=== PATIENT | male | born 1990 | race Caucasian/White ===

== ENCOUNTER 2025-01-09 06:50 | Emergency (ER) | payer MEDICAID, SELFPAY ==
--- OUTSIDE RECORDS SUMMARY | 2023-07-26 09:00 | XMS_ITS ---
Author Organization [facility] Servic es Address [address] [place] [address] Care Team Providers Care Barrel Lathe Operator Outside Name Role Phone Doreen Goodrich Primary Care Provider [phone] Ching Greco [facility] [phone] REASON FOR VISIT PROPHY Encounters Encounter Location Date Provider Diagnosis [place] [address] [place] [address] 07/26/2023 Ching Greco Plan Of Treatment Next Appt Details Provider Name:Isabell Ivy, 02:00:00 PM, [address] [place], [address], Provider Name:Juliette Meek, 04/05/2025 01:30:00 PM, [address] [place], [address], Progress Notes * SERGIO OROZCO EDOB:1990 (34 yo M)Acc No.[id number]:07/26/2023 Patient:?SERGIO OROZCO :Fabian NyDOB:1990???Age:33 Y???Sex:Male Date:4Phone:[phone]:[facility]Pcp:Doreen Shelton Subjective: * Chief Complaints: * P ROPHY * Electronic signature of Ching Greco on 01/09/2025 at 07:23 AM EDTSign off status: Pending * Provider: Jed Ny Date: 0 07/26/2023 Generated for Printing/Faxing/eTransmitting on:?01/09/2025 07:23 AM EDT
--- OUTSIDE RECORDS SUMMARY | 2023-07-27 11:15 | XMS_ITS ---
Author Organization [employer] [facility] Servic es Address [address] [place] [address] Care Team Providers Care Auto Care Center Manager Name Role Phone Doreen Goodrich Primary Care Provider Ching Greco [facility] [phone] REASON FOR VISIT 6 MONTH PROPHY Medications Medication SIG (Take, Route, Frequency, Duration) Notes Start Date End Date Status Suboxone Active Encounters Encounter Location Date Provider Diagnosis [address] [place] [address] 07/27/2023 Ching Greco Plan Of Treatment Next Appt Details Provider Name:Isabell Ivy, 02:00:00 PM, [address] [place], [address], Provider Name:Juliette Meek, 04/05/2025 01:30:00 PM, [address] [place], [address], Progress Notes * SERGIO OROZCO EDOB:1990 (34 yo M)Acc No.[id number]:07/27/2023 Patient:?SERGIO OROZCO :?Ching NyDOB:1990???Age:33 Y???Sex:Male Date:4Phone:[phone]:[facility], [place]Zmg:Doreen Shelton Subjective: * Chief Complaints: * 6 MONTH PROPHY * Medications: T akingSuboxone Taking Suboxone * Electronic signature of Ching Greco on 01/09/2025 at 07:23 AM EDTSign off status: Pending * Provider: Jed Ny Date: 0 07/27/2023 Generated for Printing/Faxing/eTransmitting on:?01/09/2025 07:23 AM EDT
--- OUTSIDE RECORDS SUMMARY | 2023-08-12 04:30 | XMS_ITS ---
Author Organization [facility] Servic es Address [address] [place] [address] Care Team Providers Care Production Checker Name Role Phone Pasha Goodrich Primary Care Provider REASON FOR VISIT EXTREME PAIN SWOLLEN FACE Encounters Encounter Location Date Provider Diagnosis [place] [address] [place] [address] 08/12/2023 Pasha Orr Plan Of Treatment Next Appt Details Provider Name:Isabell Ivy, 02:00:00 PM, [address], [place], [address], Provider Name:Juliette Meek, 04/05/2025 01:30:00 PM, [address] [place], [address], Progress Notes * SERGIO OROZCO EDOB:1990 (34 yo M)Acc No.[id number]:08/12/2023 Patient:?SERGIO OROZCO :?PASHA ORR DDSDOB:1990???Age: 33 Y???Sex:MaleDate:4Phone:[phone]:[address] Subjective: * Chief Complaints: * E XTREME PAIN SWOLLEN FACE * Electronic signature of Pasha Orr DDS on 01/09/2025 at 07:23 AM EDTSign off status: Pending * Provider: Marcelino ORR DDS Date: 0 08/12/2023 Generated for Printing/Faxing/eTransmitting on:?01/09/2025 07:23 AM EDT
--- OUTSIDE RECORDS SUMMARY | 2024-07-10 04:30 | XMS_ITS ---
Author Organization [facility] Servic es Address [address] [place] [address] Care Team Providers Care President And Chief Executive Officer Name Role Phone Doreen Goodrich Primary Care Provider [phone] Shreya Alamo [facility] [phone] REASON FOR VISIT EXT Encounters Encounter Location Date Provider Diagnosis [facility] [address] [place] [address] 07/10/2024 Shreya Alamo Plan Of Treatment Next Appt Details Provider Name:Isabell Ivy, 02:00:00 PM, [address], [place], [address], Provider Name:Juliette Meek, 04/05/2025 01:30:00 PM, [address], [place], [address], Progress Notes * SERGIO OROZCO EDOB:1990 (34 yo M)Acc No.[id number]:07/10/2024 Patient:?SERGIO OROZCO :?Shreya AlamoDOB:1990???Age:33 Y???Sex:Male Date:07/10/2024Phone:[phone]:[facility]Pcp:Doreen Shelton Subjective: * Chief Complaints: * E XT * Electronic signature of Shreya Alamo , DMD on 01/09/2025 at 07:23 AM EDTSign off status: Pending * Provider: Lidya Alamo Date: 0 07/10/2024 Generated for Printing/Faxing/eTransmitting on:?01/09/2025 07:23 AM EDT
[2025-01-09 06:58] VITALS: BP 145/106; PULSE 108; TEMP 36.7; O2SAT 100; BMI 28.1
--- OUTSIDE RECORDS SUMMARY | 2025-01-09 07:24 | XMS_ITS | Patient Health Record ---
Author Organization [facility] Servic es Address [address] [place] [address] Care Team Providers Care Basket Grader Name Role Phone Doreen Goodrich Primary Care Provider Dr. Eugenio Knott Unavailable [phone] Shreya Alamo Unavailable [phone] Isabell Ivy Unavailable [phone] Reason For Referral No Information Medications Medication SIG (Take, Route, Frequency, Duration) Notes Start Date End Date Status Ibuprofen 800 MG Tablet 1 tablet with fo od or milk as needed Orally Three times a day 08/11/2023UnknownSuboxoneUnknown Encounters Encounter Location Date Provider Diagnosis [facility] [address] [place] [address] 10/09/2024 Doreen Shelton [facility] [place] [address]/27/2025 Isabell YiDental caries on pit and fissure surface penetrating into dentin K02.52 ; Encounter for dental examination and cleaning with abnormal findings Z01.21 and Other dental procedure status Z98.818[facility] [address] [place] [address]/08/2024Joseph RizkCracked tooth K03.81[facility] [place] [address]Esther YiDental caries on pit and fissure surface penetrating into dentin K02.52[address] [place] [address]/Fitana SheltonEncounter for dental examination and cleaning with abnormal findings Z01.21 ; Disturbances in tooth eruption K00.6 ; Other dental procedure status Z98.818 ; Necrosis of pulp K04.1 and Cracked tooth K03.81 Assessments Encounter Date Diagnosis (ICD Code) Assessment Notes Treatment Notes Treatment Clinical Notes Section Notes 10/25/2024 Cracked tooth (ICD-10 - K03.81) 11/01/2024Dental caries on pit and fissure surface penetrating into dentin (ICD- 10 - K02.52)11/15/2024Dental caries on pit and fissure surface penetrating into dentin (ICD-10 - K02.52)07/05/2024Encounter for dental examination and cleaning with abnormal findings (ICD-10 - Z01.21)11/15/2024Encounter for dental examination and cleaning with abnormal findings (ICD-10 - Z01.21)07/05/2024 Disturbances in tooth eruption (ICD-10 - K00.6)11/15/2024Other dental procedure status (ICD-10 - Z98.818)07/05/2024Other dental procedure status (ICD-10 - Z98.818)07/05/2024Necrosis of pulp (ICD-10 - K04.1)07/05/2024racked tooth (ICD- 10 - K03.81) Plan Of Treatment Next Appt Details Provider Name:Isabell Cata, 02:00:00 PM, [address], [place], [address], Provider Name:Juliette Meek, 04/05/2025 01:30:00 PM, [address], [place], [address], Insurance Providers Payer Name Payer Address Payer Phone Subscriber Number Group Number Insured Name Patient Relationship to Insured Coverage Start Date Coverage End Date Dental [employer] DQ [address] [place] [address] [phone] [id number] - patient is the lzpiyhl3307/05/2024Dental Wrap CFC HumanaPO [address] [place] [id number] Babatunde OROZCO - patient is the nnsvfih5307/05/2024zDENTAL DQ [employer]-termed 04/21/22[address] [place] [id number] Babatunde OROZCO - patient is the [id number] ADVANTAGE-termed 04/21/22[address] [place] [phone] [id number] - patient is the [id number] MEDICAID CFC after [employer]ter[employer] 04/21/22[address] [place] [address] [id number] - patient is the insured zMEDICAID CFC after [employer]termed 04/21/22[address] [place] [id number] - patient is the [id number]
--- OUTSIDE RECORDS SUMMARY | 2025-01-09 07:24 | XMS_ITS | Clinical Summary ---
Author Organization [facility] Address [address] [place] [address] Care Team Providers Care Sink Cutter Name Role Phone Genevieve Rodriges LOAN SECRETARY Primary Care Provider Allergies No known active allergies Medications MedicationSigDispense QuantityRefillsLast FilledStart DateEnd DateStatus buPROPion XL (Wellbutrin XL) 150 MG 24 hr tablet 08/30/2023ctive busPIRone (Buspar) 15 MG tablet 08/30/2023ctive hydrOXYzine pamoate (Vistaril) 50 MG capsule 08/30/2023ctive traZODone (Desyrel) 100 MG tablet Take 100 mg by mouth10/14/2023ctive ziprasidone (Geodon) 20 MG capsule 08/30/2023ctive DULoxetine (Cymbalta) [address] capsule 02/16/2024ctive fluticasone (Flonase) 50 MCG/ACT nasal spray Indications:Chronic maxillary sinusitisAdminister 2 sprays into each nostril Daily Shake gently. Before first use, prime pump. After use, clean tip and replace cap. 48 g 3015004/07/2025ctive cetirizine (ZyrTEC) 10 MG tablet Indications:Chronic maxillary sinusitisTake 1 tablet (10 mg) by mouth Daily as needed for allergies 30 tablet 1101506Active amoxicillin (Amoxil) 875 MG tablet 5Active Active Problems ProblemNoted DateDiagnosed DateCannabis use, unspecified with unspecified cannabis-induced disorder ([facility])10/19/2024 Overview (10/19/2024): Noted by [employer] last documented on 20240107 Major depressive disorder, recurrent severe without psychotic /31/2025 Overview (10/19/2024): Noted by [facility] last documented on 20240328 Opioid dependence, in qfjbmotkg33/31/2025 Overview (10/19/2024): Noted by [facility] last documented on 20240107 Derangement of left knee04/07/2024Neck pain04/07/2024 Encounters DateTypeDepartmentCare NdyfEmjwstdrutd85/01/2025 11:10 AM EDTOffice Visit [facility] [address] [place] [address] Delma Villar MD Chronic maxillary sinusitis (Primary Dx)10/20/2024amboo flowsheet [facility] [address] [place] [address] Delma Villar MD 10/20/2024Travelfrom Last 3 Months Social History Tobacco UseTypesPacks/DayYears UsedDateSmoking Tobacco: Every DayCigarettes Smokeless Tobacco: Never Tobacco Cessation:Ready to Q uit: Not Asked; Counseling Given: Not Answered Alcohol UseStandard Drinks/WeekCommentsNot Currently0 (1 standard drink = 0.6 oz pure alcohol)Sex and Gender InformationValueDate RecordedSex Assigned at Not on fileLegal JqiOcpn6207/20/2022 8:32 PM EDTGender IdentityNot on fileSexual OrientationNot on file Last Filed Vital Signs Vital SignReadingTime TakenCommentsBlood Xmcinsdk958/8503 3:36 PM EDT Qpnmh08670/14/2025 3:36 PM EDTTemperature--Respiratory Rate--Oxygen Saturation-- Inhaled Oxygen Concentration--Ovgtax79.8 kg (220 lb)10/20/2024 11:12 AM EDT Ipfldh631.9 cm (6')10/20/2024 11:12 AM EDTBody Mass Index29.8410/20/2024 11:12 AM EDT Plan of Treatment DateTypeDepartmentCare Team (Latest Contact Info)Cxivxkcuqvm80/07/2025 9:50 AM ESTOffice Visit [facility] [address] [place] [address] Delma Villar MD [address] [facility] [address] [place] [address] Insurance Care Teams Team MemberRelationshipSpecialtyStart DateEnd Date Genevieve Rodriges NP [facility] [address] [place] [address] PCP - General04/03/24
--- OUTSIDE RECORDS SUMMARY | 2025-01-09 07:24 | XMS_ITS | Clinical Summary ---
Author Organization [employer] [facility] tem Address [id number] [place] [address] Care Team Providers Care Round Up Ring Hand Name Role Phone Genevieve Rodriges IOS DEVELOPER-SENIOR PRINCIPAL ARCHITECT Primary Care Provider + Allergies No known active allergies Medications MedicationSigDispense QuantityRefillsLast FilledStart DateEnd DateStatus buprenorphine-naloxone (SUBOXONE) 8-2 mg per SL tablet DISSOLVE 3/4 OF A TABLET UNDER THE TONGUE TWICE DAILY05/10/2020ctive diclofenac sodium (VOLTAREN) 1 % gel Indications:Acute pain of left kneeApply 2 g topically 3 (three) times a day as needed (pain). 100 g 05/31/2020ctive Additional Information Patient not taking.Reported on 10/07/2024 traZODone (DESYREL) 100 mg tablet TAKE 1 TABLET BY MOUTH ONCE DAILY AT BEDTIME NEEDEDActive Active Problems No known active problems Family History Medical HistoryRelationNameCommentsNo Known ProblemsFatherDiabetesMaternal GrandmotherNo Known ProblemsMotherHeart diseasePaternal GrandfatherRelationName StatusCommentsFatherMaternal GrandmotherDeceasedMotherPaternal Grandfather Social History Tobacco UseTypesPacks/DayYears UsedDateSmoking Tobacco: Every DayCigarettes Smokeless Tobacco: NeverAlcohol UseStandard Drinks/WeekCommentsNever0 (1 standard drink = 0.6 oz pure alcohol)AUDIT-CAnswerDate RecordedQ1: How often do you have a drink containing alcohol?Never05/31/2020verage Number of DrinksNot on file05/31/2020Frequency of Binge DrinkingNot on file05/31/2020hildcareAnswer Date KfhtxtjzPqtxvnzfgJqvguja39/04/2021mploymentAnswerDate RecordedEmployment Uahajdf4305/23/2020urpose - LifeAnswerDate RecordedPurpose and direction in life Ogmzvgr8005/23/2020ex and Gender InformationValueDate RecordedSex Assigned at BirthNot on fileLegal KhfKwfq4505/23/2020 11:28 AM ESTGender IdentityNot on file Sexual OrientationNot on file Last Filed Vital Signs Vital SignReadingTime TakenCommentsBlood Ifcfgogr486/3061710/07/2024 2:54 PM EDT Vslvf577310/07/2024 2:54 PM LUGMnhlujdnzpo37.5 ??C (97.7 ??F)10/07/2024 2:54 PM EDTRespiratory Bubs255610/07/2024 2:54 PM EDTOxygen Dhctzucvug14%10/07/2024 2:54 PM EDTInhaled Oxygen Concentration--Mpajjk28.3 kg (210 lb)10/07/2024 2:54 PM EDT Kidppo452.9 cm (6')09/06/2020 2:10 PM EDTBody Mass Index28.48009/06/2020 2:10 PM EDT Plan of Treatment Health MaintenanceDue DateLast DoneCommentsTobacco Cqxazyncwp46/27/1989 Depression Cmwelvbfu21/27/2001DTaP,Tdap and Td Vaccines (2 - Td or Tdap) Influenza Arorohv9211/20/2024dult BMI Ptkbioquj98/19/2026 10/07/2024Tobacco Mbonispso57 Medical Devices Not on file Insurance * Guarantor: Johnathan BorjaAccount TypeRelation to PatientDate of PhoneBilling AddressPersonal/ZpjoseNmqa88/27/1989 [facility] [address] [address] Care Teams Team MemberRelationshipSpecialtyStart DateEnd Date Genevieve Rodriges APRN-SENIOR PRINCIPAL ARCHITECT [address] [place] [address] PCP - GeneralFami Medicine10/07/24
--- NOTE | 2025-01-09 07:26 | ED_ITS ---
HPI - Skin/Abscess/Foreign Bdy General Chief complaint: Skin/Abscess/Foreign Body Stated complaint: R JAW PAIN Time Seen by Provider: 01/09/25 07:10 Mode of arrival: walk-in History of Present Illness HPI narrative: The patient is coming to the ER with 2 days history of swelling in his chin, he noted the swelling after he initially had a pimple that he poked on 2 days ago and he started having swelling, he denies any other complaints of fever chills or any other concerns The patient was applying warm compression to the area and it got bigger Related Data Previous Rx's ?Medication ?Instructions ?Recorded doxycycline hyclate 100 mg capsule 100 mg PO BID 7 day s #14 caps 01/09/25 ibuprofen 600 mg tablet 600 mg PO Q8H PRN pain #20 t abs 01/09/25 mupirocin 2 % topical ointment 1 applic topical BID #1 5 grams 01/09/25 Allergies Allergy/AdvReac Type Severity Reaction Status Date / Time No Known Drug Allergies Allergy Verified 01/09/25 06:58 Review of Systems ROS Status of ROS 10 or more systems reviewed and unremark able except as noted in history and below PFSH PFSH Social History Little interest or pleasure in doing things: not at all Feeling down, depressed, or hopeless: not at all Exam Narrative Exam Narrative: Nurses notes and vital signs reviewed and patient is not hypoxic. General: Well-appearing and in no apparent distress. Skin: Warm, dry, no pallor noted. No rash. Head: Normocephalic, atraumatic. Neck: Supple, non-tender. Face: The right side of the chin area the patient have a swelling that is limited to almost skin induration around hair follicle almost 1 cm. There is no area of fluctuation but there is tenderness, this is just limited to the chin area Neurological: A&O x4. No cranial nerve dysfunction observed. No truncal ataxia. Moves all extremities. Sensation intact. Psychiatric: Cooperative and interactive. Normal mood and affect. Constitutional Vital Signs, click to edit/add: Last Vital Signs Temp 98.0 F 01/09/25 06:58 Pulse 108 H 01/09/25 06:58 Resp 16 01/09/25 06:58 BP 145/106 H 01/09/25 06:58 Pulse Ox 100 01/09/25 06:58 O2 Del Method Room Air 01/09/25 06:58 Course Vital Signs Vital signs: Vital Signs Temperature 98.0 F 01/09/25 06:58 Pulse Rate 108 H 01/09/25 06:58 Respiratory Rate 16 01/09/25 06:58 Blood Pressure 145/106 H 01/09/25 06:58 Pulse Oximetry 100 01/09/25 06:58 Oxygen Delivery Method Room Air 01/09/25 06:58 Temperature 98.0 F 01/09/25 06:58 Pulse Rate 108 H 01/09/25 06:58 Respiratory Rate 16 01/09/25 06:58 Blood Pressure 145/106 H 01/09/25 06:58 Pulse Oximetry 100 01/09/25 06:58 Oxygen Delivery Method Room Air 01/09/25 06:58 MDM - Skin/Abscess/Foreign Bdy MDM Narrative Medical decision making narrative: The patient pulse was 94 at the bedside The presentation is mostly secondary to an area of folliculitis with a mild cellulitis surrounding that with no systemic symptoms of infection The patient started on doxycycline as well as mupirocin and instructed on monitoring symptoms in case of increase in the swelling or any fever the patient to come back to the ER Patient also to avoid shaving for the next 2 weeks and avoid using the same blade for shaving twice the patient is to follow up with primary care physician in next 2-3 days or to return to the emergency department should any of the signs or symptoms worsen or new symptoms develop. The patient agrees with the following Diagnosis and Treatment plan and the patient will be discharged home. Discharge Plan Discharge Chief Complaint: Skin/Abscess/Foreign Body Clinical Impression: Folliculitis barbae, Cellulitis Patient Disposition: Home, Self-Care Time of Disposition Decision: 07:31 Condition: Good Prescriptions / Home Meds: New doxycycline hyclate 100 mg capsule 100 mg PO BID 7 Days Qty: 14 0RF mupirocin 2 % ointment 1 applic topical BID Qty: 15 0RF Rx Instructions: apply to the gatica ibuprofen 600 mg tablet 600 mg PO Q8H PRN (Reason: pain) Qty: 20 0RF Print Language: [place] Instructions: Folliculitis (ED) Additional Instructions: Please do not apply any warm compression you can apply only cold compression Do not apply any pressure to the area In case of increasing the swelling or redness or any fever the patient to come back to the ER Apply the cream and take the antibiotic 1 time Do not shave with the same blades and avoid shaving for the next 2 weeks at least Referrals: Genevieve Rodriges, PERSONAL BANKING ASSISTANT [Primary Care Provider] - 1 week Discharge Date/Time: 01/09/25 07:49
[2025-01-09] MEDS: AMOXICILLIN/POT CLAV 875-125 MG TABLET 1 TAB PO (07:34)
[2025-01-09] MEDS: IBUPROFEN 600 MG TABLET PO (07:34)
[2025-01-09] MEDS: DOXYCYCLINE MONOHYDRATE 100 MG CAPSULE PO (07:38)
== END 2025-01-09 07:49 | disposition home or self-care (01) ==
PROVIDERS: Emergency Provider Emergency Medicine; PCP Nurse Practitioner Family
DX: L73.8 Other specified follicular disorders (principal); L03.211 Cellulitis of face
CPT/HCPCS: 99284